=== PATIENT | male | born 1980 | race Caucasian/White ===

== ENCOUNTER 2022-03-07 12:20 | Emergency (ER) | payer OTHER, SELFPAY ==
[2022-03-07 12:50] VITALS: BP 170/98; PULSE 86; RESP 18; TEMP 36.8; O2SAT 99; BMI 27.0
--- NOTE | 2022-03-07 13:13 | HMH.EDUTC ---
[facility] [place] Disposition Clinical Impression: Allergic rhinitis Qualifiers: Allergic rhinitis trigger: unspecified Allergic rhinitis seasonality: unspecified Qualified Code(s): J30.9 - Allergic rhinitis, unspecified Disposition: Home, Self-Care Condition on Discharge: Good Instructions: Allergic Rhinitis, DI for Allergic Rhinitis Additional Instructions: Take medication as prescribed Follow up with your Family Doctor for allergy tested and further treatment Return if needed Straight to ER if any life threatening symptoms Prescriptions: Cetirizine HCl [Zyrtec 10mg Tab*] 10 mg PO DAILY 30 Days #30 tab Transmission Status: Received by [id number] Referrals: Provider,Referral, [Primary Care Provider] - As needed Time of Disposition: 13:22 Medical Decision Making - Alvaro Inquiry Pt receiving controlled substance: No Alvaro was queried for this patient: No Vital Signs: 03/07/22 12:50 03/07/22 13:28 Temperature 98.2 F 98.2 F Temperature Source Oral Pulse Rate 86 Pulse Rate [Right Brachial] 86 Respiratory Rate 18 18 Blood Pressure 170/98 H Blood Pressure [Right Arm] 170/98 H Blood Pressure Mean [Right Arm] 122 Blood Pressure Source [Right Arm] Automatic Cuff Blood Pressure Position [Right Arm] Sitting 02 Sat by Pulse Oximetry 99 Oxygen Delivery Method Room Air Orders (Tests/Meds): ED MEDICATIONS Discontinued Medications Generic Name Dose Route Start Last Admin Trade Name Eveilo PRN Reason Stop Dose Admin Methylprednisolone Sodium Succinate 125 mg 03/07/22 13:19 03/07/22 13:25 Methylprednisolone Sod Succ 125mg Vial IM 03/07/22 13:20 125 mg ONCE ONE Administration [facility] [place] HPI - General Stated complaint: congestion, sneezing, cough, congestion Time Seen by Provider: 03/07/22 13:13 Mode of Arrival: Ambulatory Source of Information: Patient Limitations: No Limitations Description of Symptoms (Recalled from Triage Doc. by RN): PATIENT C/O ITCHY EYES AND RUNNY NOSE X 1 WEEK HEENT Symptoms (Recalled from RN notes): Yes Resp Symptoms (Recalled from RN notes): No Skin Symptoms (Recalled from RN notes): No MS Symptoms (Recalled from RN notes): No Functional Status (Recalled from RN notes): WNL - History of Present Illness Provider Complaint: Patient states that he has been cutting trees and bushes and thinks he has aggrivate his allergies States that he has been having runny nose and itchy eyes for about a week State that before when his allergies got this bad he got a steriod shot to help them - Related Data Previous Rx's Medication Instructions Recorded Cetirizine HCl [Zyrtec 10mg Tab*] 10 mg PO DAILY 30 Days #30 tab 03/07/22 Allergies Allergy/AdvReac Type Severity Reaction Status Date / Time No Known Allergies Allergy Verified 02/18/19 11:50 - Worker's Comp Is this a Worker's Comp case?: No [facility] History - Hepatitis A Screen Attestation statement:: This patient has been screened for Hepatitis A risk factors. I have reviewed the patient's past medical history: Yes Medical History: Denies:: Diabetes Mellitus Type 1, Diabetes Mellitus Type 2 - Social History Smoking Status: Never smoker Alcohol Intake: never Alcohol Intake Frequency:: holidays/special occasions only Occupational Status: other Housing: house Household Members: family Family Hx:: Non-contributory ROS Obtained: Yes All systems reviewed & no additional complaints, Yes Systems reviewed as appropriate & no additional complaints - Constitutional Constitutional: Reports system reviewed and no additional complaints, except as docu, Denies body ache, Denies chills, Denies fatigue, Denies fever(s) - Eyes Eyes: Reports system reviewed and no additional complaints, except as docu, Reports irritation, Reports itchy eyes - ENT Ears, Nose, Mouth, and Throat: Reports system reviewed and no additional complaints, except as docu - Cardiovascular Cardiovascular: Reports system reviewed and no
[2022-03-07 13:28] VITALS: BP 170/98; PULSE 86; RESP 18; TEMP 36.8; O2SAT 99
== END 2022-03-07 13:35 | disposition home or self-care (01) ==
PROVIDERS: Emergency Provider Nurse Practitioner
DX: J30.9 Allergic rhinitis, unspecified (principal)
CPT/HCPCS: 96372; 99212; G0463

== ENCOUNTER 2023-02-07 17:26 | Emergency (ER) | payer OTHER, SELFPAY ==
[2023-02-07 17:27] VITALS: BP 160/107; PULSE 93; RESP 18; TEMP 36.8; O2SAT 100; BMI 27.0
--- NOTE | 2023-02-07 17:52 | EXP.UTC ---
Discharge Plan Disposition Patient Disposition: Home, Self-Care Condition: Good Prescriptions Prescriptions: New methylprednisolone 4 mg Tablets,Dose Pack 4 mg PO DIRECTED Qty: 21 0RF No Action cetirizine 10 MG tablet 10 mg PO DAILY 30 Days Qty: 30 0RF Referrals Follow up/Referrals: Provider,Referral, [Primary Care Provider] - See instructions Glendy Chaves DPM [Staff Physician] - See instructions Activity Restrictions/Add. Instructions Additional Instructions/Restrictions: Rest the extremity, Elevate the extremity as tolerated while you are resting. Take the medications as directed. Follow up with Dr. Chaves (podiatry) if you continue to have symptoms. I put in a referral but you would need to call her office and schedule an appointment. Follow up with your regular doctor. GO TO THE ER FOR ANY WORSENING SYMPTOMS Clinical Impressions Clinical Impression: Right ankle tendonitis, Ankle pain, right Stand Alone Forms Stand Alone Forms: Work/School Release Instructions Patient Instructions: DI for Tendinitis Discharge ED Provider: Milind Cheung [facility] General Stated complaint: Rt ankle pain Mode of Arrival: Ambulatory Source of Information: Patient Limitations: No Limitations Time Seen by Provider: 02/07/23 17:35 Description of Symptoms (Recalled from Triage Doc. by RN): Patient states he has had tendinitis in this foot before but it started getting worse 5 days ago. HEENT Symptoms (Recalled from RN notes): No Resp Symptoms (Recalled from RN notes): No Skin Symptoms (Recalled from RN notes): No MS Symptoms (Recalled from RN notes): Yes Functional Status (Recalled from RN notes): wnl History of Present Illness Provider Complaint: He states that he has a history of getting tendonitis in his right ankle. His symptoms began about 5 days ago for this episode. In the past he has taken steroids when it flared up. He wants to be seen today to see about getting steroids prescribed. Related Data Previous Rx's Medication Instructions Recorded cetirizine 10 mg tablet 10 mg PO DAILY 30 days #30 tabs 03/07/22 methylprednisolone 4 mg tablets in 4 mg PO DIRECTED #21 tabs 02/07/23 a dose pack Allergies Allergy/AdvReac Type Severity Reaction Status Date / Time No Known Allergies Allergy Verified 02/18/19 11:50 Worker's Comp Is this a Worker's Comp case?: No [facility] Disclaimer: The information contained in this section may have been updated after the patient was seen, as this information can be updated by other users. Social History Smoking Status: Never smoker alcohol intake: never current occupational status: other Travel in the last 8 weeks: None household members: family housing: house ROS Obtained: Yes All systems reviewed & no additional complaints except as documented Constitutional Constitutional: Denies chills and Denies fever(s) Eyes Eyes: Denies eye discharge ENT Ears, Nose, Mouth, and Throat: Denies dizziness, Denies otalgia and Denies sore throat Cardiovascular Cardiovascular: Denies chest pain Respiratory Respiratory: Denies shortness of breath, Denies chest congestion, Denies cough, Denies stridor and Denies wheezing Gastrointestinal Gastrointestingal: Denies nausea or vomiting Musculoskeletal Musculoskeletal: Reports as per HPI and Reports arthralgias Integumentary/Breasts Skin/Breast: Denies rash Neurologic Neurologic: Denies dizziness and Denies paresthesias Allergic/Immunologic Allergic/Immunologic: Denies wheezing Physical Exam General General appearance: alert and in no apparent distress Head Head exam: atraumatic, normocephalic and normal inspection Eye Eye exam: Present normal appearance, PERRL and EOMI ENT ENT exam: Present normal exam, normal oropharynx, mucous membranes moist, TM's normal bilaterally and normal external ear exam Neck Neck exam: Present normal inspection, full ROM and trachea midline; Absent menin
[2023-02-07 17:55] VITALS: BP 160/107; PULSE 93; RESP 18; TEMP 36.8; O2SAT 100
== END 2023-02-07 17:59 | disposition home or self-care (01) ==
PROVIDERS: Emergency Provider Nurse Practitioner Family
DX: M25.571 Pain in right ankle and joints of right foot (principal); M65.271 Calcific tendinitis, right ankle and foot
CPT/HCPCS: 99212; 99214; G0463